=== PATIENT | female | born 1945 | race Caucasian/White ===

== ENCOUNTER 2017-09-29 09:36 | Day surgery (SDC) | payer MEDICARE, OTHER ==
[~2017-09-29] VITALS: Ht 170.2 cm; Wt 76.9 kg
[~2017-09-29 09:36] MED LIST: ACET325; ALBU90OI INH; AMIT10 PO; ANAS1 PO; ATEN25 PO; ATEN50; Aspir 8181 MG; C-10001000 M1; DILT60ER; ESTR.05PBW TOP; ESTR.05TPB TOP; ESTR1 PO; Excedrin Extra1 EACH; FENO160 PO; GABA100 PO; HYDACE5 PO; HYDR10; Hydrochloroth12.5 MG PO; LEVFLO500 PO; LISI20 PO; LOFIBRA; LOSA50; MEDR2.5 PO; METF500C; METR500 PO; MULTI VITAMIN1 EACH; Mobic15 MG; ONDA4ODT MM; OXYACE5T PO; PANT20 PO; PANT40; QVAR7.3 G1 IH; SERT50 PO; TRAM50
[2017-09-29] MEDS ORDERED: Stool Softener100 MG (10:30)
[2017-09-29] MEDS ORDERED: GLUC500 PO (10:30)
[2017-09-29] MEDS ORDERED: MAGOXI400 (10:30)
[2017-09-29] MEDS ORDERED: Cinnamon500 MG (10:31)
== END 2017-09-29 11:40 | disposition home or self-care (01) ==
LOC: ORSCSDS 09:36
PROVIDERS: Surgery
PROC: 0DJD8ZZ Inspection of Lower Intestinal Tract, Via Natural or Artificial Opening Endoscopic (ICD-10-PCS; principal; 2017-09-29 11:00)
DX: R93.5 Abnormal findings on diagnostic imaging of other abdominal regions, including retroperitoneum (principal); K57.92 Diverticulitis of intestine, part unspecified, without perforation or abscess without bleeding; K57.30 Diverticulosis of large intestine without perforation or abscess without bleeding; Z80.0 Family history of malignant neoplasm of digestive organs; J45.909 Unspecified asthma, uncomplicated; F32.9 Major depressive disorder, single episode, unspecified; I10 Essential (primary) hypertension; E11.9 Type 2 diabetes mellitus without complications; I72.3 Aneurysm of iliac artery; Z87.891 Personal history of nicotine dependence; Z79.82 Long term (current) use of aspirin; Z79.84 Long term (current) use of oral hypoglycemic drugs; Z79.899 Other long term (current) drug therapy
CPT/HCPCS: 82947; J7120

== ENCOUNTER → 2018-05-27 | Outpatient (CLI) | payer MEDICARE, OTHER ==
[~2018-05-27] MED LIST changes: +Cinnamon500 MG; +GLUC500 PO; +MAGOXI400; +Stool Softener100 MG
[2018-05-27 12:14] LABS: BASOPHILS ABSOLUTE AUTO 0.12 K/mm3 (0.00-0.23); BASOPHILS PERCENT AUTO 1 % (0-2); EOSINOPHILS ABSOLUTE AUTO 0.34 K/mm3 (0.00-0.68); EOSINOPHILS PERCENT AUTO 1 % (0-6); Hematocrit 38.9 % (33.0-51.0); IMMATURE GRAN PERCENT AUTO 3 % (0-1); LYMPHOCYTES ABSOLUTE AUTO 2.12 K/mm3 (0.84-5.20); LYMPHOCYTES PERCENT AUTO 9 % (21-46); MONOCYTES ABSOLUTE AUTO 1.87 K/mm3 (0.16-1.47); MONOCYTES PERCENT AUTO 8 % (4-13); Mean Corpuscular HGB Conc 33.4 g/dL (31.5-36.5); Mean Corpuscular Volume 87 fL (80-100); Mean Platelet Volume 8.7 fL (9.1-12.4); NEUTROPHILS PERCENT AUTO 78 % (41-73); Platelet Count 775 K/mm3 (150-400); RDW Coefficient Variation 13.2 % (11.7-14.2); RDW Standard Deviation 41.3 fL (35.1-46.3); Red Blood Cell Count 4.49 M/mm3 (3.80-5.20); White Blood Cell Count 23.75 K/mm3 (4.00-11.30)
[2018-05-27 12:28] LABS: Anion Gap 12 mmol/L (6-16); Blood Urea Nitrogen 16 mg/dL (8-24); Bun/Creatinine Ratio 12.7 (12.0-20.0); CO2, Blood 27 mmol/L (21-32); Calcium, Blood 9.6 mg/dL (8.5-10.1); Chloride, Blood 88 mmol/L (98-108); Creatinine, Blood 1.26 mg/dL (0.40-1.00); Glomerular Filtration Rate 42 (60-); Glucose, Blood 111 mg/dL (70-99); Potassium, Blood 3.8 mmol/L (3.5-5.5); Sodium, Blood 127 mmol/L (136-145)
[2018-05-27 12:29] LABS: Troponin I <0.015 ng/mL (0.000-0.040)
== END ==
LOC: LAB SHORT 12:10 → LAB EV 12:10
PROVIDERS: Family Medicine
DX: R53.83 Other fatigue (principal)
CPT/HCPCS: 80048; 84484; 85025

== ENCOUNTER 2018-11-22 05:50 | Inpatient (IN) | payer MEDICARE, OTHER ==
[~2018-11-22] VITALS: Ht 167.6 cm; Wt 73.4 kg
[~2018-11-22 05:50] MED LIST changes: -ACET325; +ACET325 PO; +ALBU90OI6 INH; -ATEN50; +ATEN50 PO; -Aspir 8181 MG; +Aspir 8181 MG PO; -C-10001000 M1; +C-10001000 M1 PO; +CHLO25B PO; -Cinnamon500 MG; +Cinnamon500 MG PO; -DILT60ER; +DILT60ER PO; -Excedrin Extra1 EACH; +Excedrin Extra1 EACH PO; -HYDR10; +HYDR10 PO; -LOSA50; +LOSA50 PO; -MAGOXI400; +MAGOXI400 PO; -METF500C; +METF500C PO; -MULTI VITAMIN1 EACH; +MULTI VITAMIN1 EACH PO; -Mobic15 MG; +Mobic15 MG PO; -PANT40; +PANT40 PO; -TRAM50; +TRAM50 PO
--- NOTE | 2018-11-22 07:09 | NUR ---
History, Chart, Medications and Allergies reviewed before start of procedure. Lungs clear T/O to Auscultation. Patient confirms NPO status and agrees with scheduled surgery. Patient reports completing Chlorhexadine shower X2 prior to admission to hospital.
--- NOTE | 2018-11-22 07:42 | NUR ---
IV TO LFA INFILTRATED. IV DC'D INTACT. NEW IV STARTED IN [facility] A/C BY WILI NOE.
--- NOTE | 2018-11-22 11:21 | NUR ---
11/22/18 1121 Graciela Salmeron 0850 CONVERTED OVER TO OPEN CASE
--- NOTE | 2018-11-22 12:47 | NUR ---
UNABLE TO ASCERTAIN LEVEL FOR EPIDURAL SINCE PT CONSISTENTLY STATES SHARP, THOUGH NO SHARP IS TOUCHING BODY. DOZES AND AWAKENS TO C/O DISCOMFORT BUT FALLS READILY BACK TO SLEEP.
--- NOTE | 2018-11-22 13:40 | NUR ---
PT ARRIVED TO UNIT AT APROX 1300 FROM PACU ON OWN BED. EPIDURAL IN PLACE-CONTINUOUS RUNNING AT 8/HR-PT REPORTS 8/10 PAIN.
--- NOTE | 2018-11-22 14:10 | NUR ---
C/O 02/06 PAIN, PTS EPIDURAL CONTINUOUS RATE INCREASED FROM 8ML/HR TO 10ML/HR
[2018-11-23 04:57] LABS: BASOPHILS ABSOLUTE AUTO 0.02 K/mm3 (0.00-0.23); BASOPHILS PERCENT AUTO 0 % (0-2); EOSINOPHILS ABSOLUTE AUTO 0.02 K/mm3 (0.00-0.68); EOSINOPHILS PERCENT AUTO 0 % (0-6); Hematocrit 39.7 % (33.0-51.0); Hemoglobin 13.2 g/dL (11.5-16.0); IMMATURE GRAN ABSOLUTE AUTO 0.09 K/mm3 (0.00-0.10); IMMATURE GRAN PERCENT AUTO 1 % (0-1); LYMPHOCYTES ABSOLUTE AUTO 1.42 K/mm3 (0.84-5.20); LYMPHOCYTES PERCENT AUTO 8 % (21-46); MONOCYTES ABSOLUTE AUTO 1.46 K/mm3 (0.16-1.47); MONOCYTES PERCENT AUTO 8 % (4-13); Mean Corpuscular HGB 29.2 pg (26.0-34.0); Mean Corpuscular HGB Conc 33.2 g/dL (31.5-36.5); Mean Corpuscular Volume 88 fL (80-100); Mean Platelet Volume 9.1 fL (9.1-12.4); NEUTROPHILS ABSOLUTE AUTO 15.47 K/mm3 (1.96-9.15); NEUTROPHILS PERCENT AUTO 84 % (41-73); Platelet Count 413 K/mm3 (150-400); RDW Coefficient Variation 14.6 % (11.7-14.2); RDW Standard Deviation 46.1 fL (35.1-46.3); Red Blood Cell Count 4.52 M/mm3 (3.80-5.20); White Blood Cell Count 18.48 K/mm3 (4.00-11.30)
[2018-11-23 05:42] LABS: Anion Gap 9 mmol/L (6-16); Blood Urea Nitrogen 15 mg/dL (8-24); Bun/Creatinine Ratio 19.5 (12.0-20.0); CO2, Blood 26 mmol/L (21-32); Calcium, Blood 8.1 mg/dL (8.5-10.1); Chloride, Blood 95 mmol/L (98-108); Creatinine, Blood 0.77 mg/dL (0.40-1.00); Glomerular Filtration Rate >60 (60-); Glucose, Blood 164 mg/dL (70-99); Potassium, Blood 3.8 mmol/L (3.5-5.5); Sodium, Blood 130 mmol/L (136-145)
--- NOTE | 2018-11-23 07:36 | NUR ---
SHIFT SUMMARY PT POD#1. AAOX4. DISCOMFORT CONTROLLED WITH EPIDURAL + TORADOL X1 THIS SHIFT. NO NAUSEA/EMESIS. ABD INCISION WITH PREVENA C/D/I. WEST WITH SCANT URINE THIS SHIFT. LAST BLADDER SCAN AT 0650 OF 186 RESIDUAL, WEST BALLOON DEFLATED + REPOSITIONED WITH BALLOON REINFLATED. IVF + ABX PER ORDERS. PT UP TO STAND AT BEDSIDE THIS AM. EPIDURAL IN PLACED WITH INCREASED SENSATION IN BLE THIS AM. Q1H VS. REPORT TO DAY SHIFT RN TO FOLLOW URINE OUTPUT + CALL DOCTOR IF NO INCREASED OUTPUT FROM WEST REPOSITIONING. PT RESTING WELL AT THIS TIME. CALL LIGHT IN REACH.
--- NOTE | 2018-11-23 18:40 | NUR ---
SHIFT SUMMARY PT A&OX4, VSS, POD1 COLECTOMY, PREVENA, ABD DISTENDED, PT REP BELCHING, DENIES FLATUS. PAIN MANAGED WITH EPIDURAL AND TORADOL. STAND PIVOT TO CHAIR FOR SEVERAL HOURS THIS SHIFT. WEST PATENT & DRAINING YELLOW URINE, STAT LOCK ON, OFF FLOOR. KEL CL DIET, DENIES N&V. WCTM & TX PER EMAR UNTIL REPORT GIVEN TO ONCOMING NOC RN.
--- NOTE | 2018-11-24 00:12 | NUR ---
DECREASED SaO2 PLACED ON 1L VIA NC. NOW 91-93%. DENIES SOB, LS DIMINISHED T/O. ENCOURAGE DEEP BREATHING + IS USE. CALL LIGHT IN REACH.
--- NOTE | 2018-11-24 07:48 | NUR ---
PT STATED SHE HAS ACID REFLUX THIS AM HAD PROTONIX THIS ALSO HAD 600 ML EMESIS LAST NIGHT PT STATED THE NAUSEA IS BETTER TOLD PT TO TAKE ONLY SIPS AND CHIPS HYPO BT'S X4 NO FLATUS ABD DIST PT HAS CRACKLES TO R LOWER BASE ENC TCDB AND IS
--- NOTE | 2018-11-24 10:57 | NUR ---
PT HAD [address] SORIANO OFFICE CALLED DEVON GIVEN PT SITTING UP IN CHAIR STILL ONLY SOFIA IN SCANT VOL
--- NOTE | 2018-11-24 12:19 | NUR ---
PT STATED THE NAUSEA IS BETTER EATING SOME SOUP AND ENSURE INSTRUCTED PT TO STILL GO SLOWLY
--- NOTE | 2018-11-24 15:30 | NUR ---
FAMILY AT BEDSIDE HAD QUESTIONS RE GOING HOME DISCUSSED WITH THEM HER PLAN OF CARE
--- NOTE | 2018-11-24 17:17 | NUR ---
DR SORIANO BY EARLIER TALKED WITH HIM RE PT REQ FOR MYLICON STATED SHE NEEDS TO PROB HAVE NGT PLACED ATTEMPTED TWICE TO PLACE UNABLE PLACE DUE TO SIZE OF NARES DID TRY A 14 GERMAN ALSO UNABLE TO PASS
--- NOTE | 2018-11-25 08:12 | NUR ---
SHIFT SUMMARY PT A&O X4 T/O SHIFT. POD#3 SIGMOID COLECTOMY; PREVENA TO ABD SEAL INTACT; NO DRAINAGE NOTED. ABD DISTENDED; HYPO BT X4; PT DENIES FLATUS; ABD FIRM; NO EMESIS BELCHING NOTED. PT STS NUMBNESS TO LLE IMPROVED OVER SHIFT. APPROX. T/O FROM DR. WADE EARLY IN SHIFT FOR EPIDURAL RATE CHANGED TO 7ML D/T PTI C/O NUMBNESS IN LLE; VERIFIED WITH DR. BARNARD VIA PHONE. RATE CHANGED TO 7 ML/HR. VSS; NO ACUTE CHANGES. CALL LIGHT IN REACH; PT DEMONSTRATES USE. CATH CARE EARLY AM BY PT; WEST DRAINING WELL. DANGLED AT BEDSIDE X2. REPORT GIVEN TO DAY SHIFT RN.
--- NOTE | 2018-11-25 17:50 | NUR ---
SUMMARY NO ACUTE CHANGES T/O SHIFT. EPIDURAL DC'D THIS AM. PAIN CONTROLLED W/PO PAIN MEDS PER ORDERS. TOLERATING FULL LIQUID DIET. C/O EPIGASTRIC PAIN WHEN SWALLOWS. DENIES PASSING FLATUS. SAT UP IN CHAIR AND AMBULATED TWICE DURING SHIFT. WEST CATH DC'D AT APPROXIMATELY 1615. HAS NOT VOIDED YET SINCE WEST CATH REMOVED. PLEASANT AND COOPERATIVE. CALL LIGHT IN REACH.
[2018-11-26 04:34] LABS: Anion Gap 6 mmol/L (6-16); Blood Urea Nitrogen 14 mg/dL (8-24); Bun/Creatinine Ratio 18.7 (12.0-20.0); CO2, Blood 30 mmol/L (21-32); Calcium, Blood 9.2 mg/dL (8.5-10.1); Chloride, Blood 91 mmol/L (98-108); Creatinine, Blood 0.75 mg/dL (0.40-1.00); Glomerular Filtration Rate >60 (60-); Glucose, Blood 101 mg/dL (70-99); Magnesium, Blood 1.6 mg/dL (1.6-2.4); Phosphorus, Blood 4.1 mg/dL (2.5-4.9); Potassium, Blood 3.4 mmol/L (3.5-5.5); Sodium, Blood 127 mmol/L (136-145)
--- NOTE | 2018-11-26 06:41 | NUR ---
Patient rested well this shift and had no complaint of pain upon waking this morning. Her IV started leaking this am, and she prefers not to have to have it if she can convert to PO meds. She will ask and get clarification from the daytime hospitalist regarding before re-starting the IV.
--- NOTE | 2018-11-26 08:50 | NUR ---
PT PASSED SMALL AMT BLOOD RECTALLY
--- NOTE | 2018-11-26 09:30 | NUR ---
PT PASSED FEW CLOTS RECTALLY.
--- NOTE | 2018-11-26 11:49 | NUR ---
DR LUGO IN TO SEE PT.
--- NOTE | 2018-11-26 14:36 | NUR ---
PT UNABLE TO TOLERATER POTASSIUM AT PRESCRIBED RATE OF 50 ML/HR. RUNNING CONCURRENTLY W/NS AND DECREASED RATE OF POTASSIUM TO 30 ML/HR FOR PT COMFORT.
--- NOTE | 2018-11-26 17:05 | NUR ---
SUMMARY NO ACUTE CHANGES T/O SHIFT. PT PASSED SMALL AMOUNT OF BLOOD AND CLOTS RECTALLY. DISCUSSED W/DR LUGO. VOIDING WELL. PT AMBULATING TO RESTROOM AND BACK. SAT UP IN CHAIR. MEDICATED PER ORDERS FOR PAIN. CALL LIGHT IN REACH.
--- NOTE | 2018-11-27 07:34 | NUR ---
POD 5 S/P COLECTOMY. PT VSS T/O NIGHT. DRESSING CDI, PT REP MINIMAL PAIN, TORADOL GIVEN X1 W/REP RELIEF. PT KEL REG PO, NO C/O N/V, REP +FLATUS. PT HAD 1 SOFT BROWN/MAROON TINGED BM. PT UP INDEP IN ROOM, USING CALL LIGHT FOR ASSISTANCE. REP GIVEN TO DAY RN.
--- NOTE | 2018-11-27 16:57 | NUR ---
SHIFT SUMMARY PT A&OX4, VSS, POD5 COLECTOMY, PREVENA W/ADELA X3. MULTIPLE BROWN/RED BMS THIS SHIFT. NAUSEA X1, LOW PO INTAKE, KEL SIPS H20. SBA IN ROOM/HALLWAY/CHAIR. PAIN MANAGED WITH 5 MG NORCO. WCTM & TX PER EMAR UNTIL REPORT GIVEN TO ONCOMING MAAME NOE.
--- NOTE | 2018-11-28 05:54 | NUR ---
SUMMARY NO ACUTE CHANGES NOTED THROUGH THE NIGHT. PT REMAINS INDEPENDENT IN THR ROOM. DRSG'S INTACT, SUCTION IN PLACE. PAIN MANAGED WITH PO NORCO. PT CONTINUES TO PASS RED/BROWN STOOL, FREQUENCY IS SLOWING. VOIDING WNL. PT IS AMBULATING AROUMD HER ROOM, INCENTIVE SPIROMETER ENCOURAGED, VSS. IV SALINE LOCKED. WCTM AT THIS TIME, CALL LIGHT IN REACH.
[2018-11-28] MEDS ORDERED: Norco 5-325 Ta1 EACH PO (15:00)
--- NOTE | 2018-11-28 15:29 | NUR ---
DISCHARGE SUMMARY PT A&OX4, VSS, LEFT FLOOR VIA WC WITH ROAD EQUIPMENT OPERATOR TO GO HOME WITH , WITH ALL PERSONAL POSSESSIONS INCLUDING DISCHARGE PACKET AND 1 NARC SCRIPT. DISCHARGE INSTRUCTIONS PROVIDED. PT REP UNDERSTANDING THOSE INSTRUCTIONS INCLUDING FU WITH PCP AND SURGEON 1 WK, LEAVE ADELA IN OKAY TO SHOWER, NO TUB BATHS OR JACUZZI, PAT DRY, TAKE PAIN MEDICATIONS PRESCRIBED, NO DRIVING WHILE TAKING NARCOTICS. IV DC'D.
== END 2018-11-28 15:55 | disposition home or self-care (01) | DRG 331 ==
LOC: SURS 05:50 → PRE IP 07:30 → SURS 13:23
PROVIDERS: Surgery; ADMIT Surgery
PROC: 0DTN0ZZ Resection of Sigmoid Colon, Open Approach (ICD-10-PCS; principal; 2018-11-22 07:30)
DX: K57.20 Diverticulitis of large intestine with perforation and abscess without bleeding (principal); E11.9 Type 2 diabetes mellitus without complications; Z79.4 Long term (current) use of insulin; I10 Essential (primary) hypertension; M54.9 Dorsalgia, unspecified
CPT/HCPCS: 36415; 80048; 82947; 83735; 84100; 85025; 88307; 94760; A9270-GY; C9113; J0295; J0690; J1100; J1650; J1885; J2250; J2310; J2370; J2405; J2543; J2704; J2710; J3010; J3480; J7050; J7120; V2790

== ENCOUNTER → 2020-06-19 | Outpatient (CLI) | payer MEDICARE, OTHER ==
[~2020-06-19] MED LIST changes: +Norco 5-325 Ta1 EACH PO
== END | disposition home or self-care (01) ==
LOC: PLD 12:36 → LAB SHORT 12:36
DX: L82.1 Other seborrheic keratosis (principal)
CPT/HCPCS: 88305

== ENCOUNTER → 2022-12-01 | Outpatient (CLI) | payer MEDICARE, OTHER | END | disposition home or self-care (01) | LOC: PLD 12:13 → LAB SHORT 12:13 | DX: L98.9 Disorder of the skin and subcutaneous tissue, unspecified (principal) | CPT/HCPCS: 88305; 88312 ==

== ENCOUNTER 2023-01-20 09:53 | Day surgery (SDC) | payer MEDICARE, OTHER ==
[~2023-01-20] VITALS: Ht 167.6 cm; Wt 65.7 kg
[2023-01-20] MEDS ORDERED: SYMBICORT 80-10.2 GM (10:04)
[2023-01-20] MEDS ORDERED: SPIR25 (10:04)
[2023-01-20] MEDS ORDERED: FARXIGA10 MG (10:04)
[2023-01-20 11:55] VITALS: BP 114/62
== END 2023-01-20 11:50 | disposition home or self-care (01) ==
LOC: ORSCSDS 09:53
PROVIDERS: Surgery
PROC: 0DBL8ZX Excision of Transverse Colon, Via Natural or Artificial Opening Endoscopic, Diagnostic (ICD-10-PCS; principal; 2023-01-20 10:45)
DX: R19.4 Change in bowel habit (principal); Z80.0 Family history of malignant neoplasm of digestive organs; D12.3 Benign neoplasm of transverse colon; E11.9 Type 2 diabetes mellitus without complications; J45.909 Unspecified asthma, uncomplicated; I10 Essential (primary) hypertension; Z87.891 Personal history of nicotine dependence; Z79.82 Long term (current) use of aspirin; Z79.899 Other long term (current) drug therapy
CPT/HCPCS: 82947; 88305; J2704; J7120

== ENCOUNTER → 2023-03-10 | Outpatient (CLI) | payer MEDICARE, OTHER ==
[~2023-03-10] MED LIST changes: +FARXIGA10 MG; +SPIR25; +SYMBICORT 80-10.2 GM
[2023-03-10 14:11] LABS: Source, Urine Clean Catch
[2023-03-10 15:32] LABS: Appearance, Urine Turbid (Clear); Bilirubin, Urine Neg (Neg); Blood, Urine 2+ (Neg); Glucose Qualitative, Urine 4+ (Neg); Ketones, Urine Neg (Neg); Leukocyte Esterase, Urine 3+ (Neg); Nitrite, Urine Pos (Neg); Protein, Urine 2+ (Neg); Specific Gravity, Urine 1.015 (1.003-1.022); Urobilinogen, Urine NORM (Normal)
[2023-03-10 15:58] LABS: Color, Urine Pale Yellow (P-Yellow)
[2023-03-10 15:59] LABS: Amorphous Light (0-Heavy); Bacteria Many /hpf; Squamous Epithelial Cells Rare /hpf (Few); White Blood Cells, Urine TNTC /hpf (0-5)
== END ==
LOC: LAB 10:59 → LAB SHORT 10:59
PROVIDERS: Internal Medicine
DX: E11.9 Type 2 diabetes mellitus without complications (principal)
CPT/HCPCS: 81001; 87077; 87086; 87186

== ENCOUNTER → 2023-03-22 | Outpatient (CLI) | payer MEDICARE, OTHER ==
[2023-03-22 11:37] LABS: Source, Urine Clean Catch
[2023-03-22 13:17] LABS: Appearance, Urine Cloudy (Clear); Bilirubin, Urine Neg (Neg); Blood, Urine 2+ (Neg); Color, Urine Yellow (P-Yellow); Glucose Qualitative, Urine 4+ (Neg); Ketones, Urine Neg (Neg); Leukocyte Esterase, Urine 3+ (Neg); Nitrite, Urine Pos (Neg); Protein, Urine 2+ (Neg); Specific Gravity, Urine 1.015 (1.003-1.022); Urobilinogen, Urine NORM (Normal)
[2023-03-22 13:39] LABS: Bacteria Mod /hpf; Squamous Epithelial Cells Not Seen /hpf (Few); White Blood Cells, Urine TNTC /hpf (0-5)
== END | disposition home or self-care (01) ==
LOC: LAB SHORT 11:36 → LAB 11:36
PROVIDERS: Internal Medicine
DX: R30.0 Dysuria (principal)
CPT/HCPCS: 81001; 87077; 87086; 87186

== ENCOUNTER → 2024-05-01 | Outpatient (CLI) | payer OTHER ==
[2024-05-06 14:03] LABS: O-DESMETHYLTRAMADOL,URN, QUANT 798 ng/mL; TRAMADOL, URN, QUANT >10000 ng/mL
== END ==
LOC: LAB SHORT 12:18 → LAB 12:18
PROVIDERS: Physician Assistant
DX: G89.4 Chronic pain syndrome (principal); Z51.81 Encounter for therapeutic drug level monitoring; Z79.899 Other long term (current) drug therapy
CPT/HCPCS: G0480

== ENCOUNTER → 2024-10-02 | Outpatient (CLI) | payer OTHER | END | disposition home or self-care (01) | LOC: LAB 08:10 → LAB SHORT 08:10 | DX: N61.0 Mastitis without abscess (principal) | CPT/HCPCS: 87070; 87205 ==

== ENCOUNTER → 2024-10-29 | Outpatient (CLI) | payer OTHER | LOC: LAB 16:48 → LAB SHORT 16:48 | DX: N61.0 Mastitis without abscess (principal) | CPT/HCPCS: 87205 ==

== ENCOUNTER → 2025-01-24 | Outpatient (CLI) | payer OTHER | END | disposition home or self-care (01) | LOC: LAB 15:01 → LAB SHORT 15:01 | DX: N39.0 Urinary tract infection, site not specified (principal); R31.9 Hematuria, unspecified | CPT/HCPCS: 87077; 87086; 87186 ==

== ENCOUNTER → 2025-05-06 | Outpatient (CLI) | payer OTHER ==
[2025-05-06 21:26] LABS: Creatinine, Urine Random 47.7 mg/dL (27.00-270.00); Microalbumin, Random Urine 12.5 mg/L (0.000-20.000)
== END ==
LOC: LAB SHORT 10:00 → LAB 10:00
PROVIDERS: Physician Assistant
DX: E11.42 Type 2 diabetes mellitus with diabetic polyneuropathy (principal); E11.59 Type 2 diabetes mellitus with other circulatory complications
CPT/HCPCS: 82043; 82570